=== PATIENT | female | born 1970 | race Caucasian/White ===

== ENCOUNTER → 2017-01-05 07:14 | Day surgery (SDC) | payer SELFPAY ==
[~2017-01-05 07:14] MED LIST: BSS OPTH.SOL* BTL ONE; Bacitracin OINTMENT* 1 TUBE ONE; Buffered Lidocaine 1% SYRIN* 3 ML/SYR SYRINGE INTRADERM ONE; Clindamycin 900 MG IVPREMIX(* 900 MG/50 ML SDV IV ONE; Dexamethasone IV* 4 MG/ML 1 ML (4 MG) ONE; Lidocain 1% EPI 1:100,000 * 30 ML MDV ONE; Lidocaine 1% INJ* 10 MG/ML 30 ML SDV ONE; Lidocaine 1.5% EPI 1:200,000* 30 ML SDV ONE; Lidocaine 2% PF* 5 ML VIAL ONE; Ondansetron INJ* 2 MG/ML VIAL ONE; Propofol* 10 MG/ML 20 ML BTL IV PUSH ONE; Sodium Citrate/Citric Acid* 15 ML UDC ONE; Sodium Citrate/Citric Acid* 15 ML UDC PO ONE; fentaNYL* 50 MCG/ML 2 ML VIAL (100 MCG VIAL) ONE
[2017-01-05 11:59] VITALS: BP 119/73
== END | disposition home or self-care (01) ==
LOC: OREAST 07:14
PROVIDERS: ATTEND Plastic Surgery
DX: Z41.1 Encounter for cosmetic surgery (principal); Z87.891 Personal history of nicotine dependence
CPT/HCPCS: A9270-GY; J1100; J2001; J2405; J2704; J3010

== ENCOUNTER 2017-06-23 07:13 | Day surgery (SDC) | payer OTHER ==
[~2017-06-23 07:13] MED LIST changes: -BSS OPTH.SOL* BTL ONE; -Bacitracin OINTMENT* 1 TUBE ONE; +Buffered Lidocaine 0.9% SYRIN* 5 ML/SYR SYRINGE INTRADERM ONE; -Buffered Lidocaine 1% SYRIN* 3 ML/SYR SYRINGE INTRADERM ONE; -Clindamycin 900 MG IVPREMIX(* 900 MG/50 ML SDV IV ONE; -Dexamethasone IV* 4 MG/ML 1 ML (4 MG) ONE; -Lidocain 1% EPI 1:100,000 * 30 ML MDV ONE; -Lidocaine 1% INJ* 10 MG/ML 30 ML SDV ONE; -Lidocaine 1.5% EPI 1:200,000* 30 ML SDV ONE; -Lidocaine 2% PF* 5 ML VIAL ONE; -Ondansetron INJ* 2 MG/ML VIAL ONE; -Propofol* 10 MG/ML 20 ML BTL IV PUSH ONE; -Sodium Citrate/Citric Acid* 15 ML UDC ONE; -Sodium Citrate/Citric Acid* 15 ML UDC PO ONE; -fentaNYL* 50 MCG/ML 2 ML VIAL (100 MCG VIAL) ONE
[2017-06-23] MEDS ORDERED: Buffered Lidocaine 0.9% SYRIN* 5 ML/SYR SYRINGE ONE (07:20)
[2017-06-23] MEDS ORDERED: Midazolam* 1 MG/ML 5 ML VIAL (5 MG) ONE (08:31)
[2017-06-23] MEDS ORDERED: fentaNYL* 50 MCG/ML 2 ML VIAL (100 MCG VIAL) ONE (08:31)
[2017-06-23] MEDS ORDERED: fentaNYL* 50 MCG/ML 2 ML VIAL (100 MCG VIAL) IV PRN (09:06)
[2017-06-23] MEDS ORDERED: Ketorolac INJ* 30 MG/ML 1 ML VIAL IV PRN (09:06)
[2017-06-23] MEDS ORDERED: oxyCODONE/Acetamin 5/325 MG* TAB PO PRN (09:06)
[2017-06-23] MEDS ORDERED: Silver Nitrate/Potassium Nitr* 1 EA STICK ONE (09:11)
[2017-06-23] MEDS ORDERED: diPHENhydraMINE IV* 50 MG/ML 1 ml VIAL (BENADRYL) ONE (10:08)
[2017-06-23 10:44] VITALS: BP 120/73
--- NOTE | 2017-06-23 23:08 | OP ---
OPERATIVE NOTE: DATE OF OPERATION: 06/23/17 DATE OF : 66 SURGEON: Hanh Leach MD SUPERVISOR GENERAL: None PRE-OP DIAGNOSES: 1. Retained intrauterine device, failed attempt at removal in the office. 2. Desires replacement, Mirena intrauterine device. POST-OP DIAGNOSES: 1. Retained intrauterine device, failed attempt at removal in the office. 2. Desires replacement, Mirena intrauterine device. OPERATIVE PROCEDURE: Removal and re-insertion of Mirena IUD device. ESTIMATED BLOOD LOSS: Minimal. FLUIDS: Crystalloid. FINDINGS: Normal appearing Mirena IUD. INDICATIONS: The patient had a Mirena IUD device that has been in for five years and was due for re moval and replacement. She underwent an attempt at removal in the office which was unsuccessful. T he patient was offered a repeat attempt in the office under ultrasound guidance, but opted for remov al in the OR. DESCRIPTION OF PROCEDURE: After informed consent was signed, the patient was taken to the operating room where she was given spinal anesthesia that was found to be adequate. She was prepped and drap ed in the dorsal lithotomy position in the [facility]. SCDs were on and running. Two speculums were placed into the vagina to reveal the cervix. The anterior lip of the cervix was grasped with a single-tooth tenaculum. A forceps device was used and was able to grasp IUD strings and easily re move the Mirena IUD. The uterus was then sounded to 9 cm. It was necessary to dilate slightly to g et through the internal os. The new Mirena IUD device was then assembled, set at 9 cm, inserted int o the uterine cavity without complications. The tenaculum was removed from the cervix with good hemo stasis with silver nitrate. The patient tolerated the procedure well. [id number]/[facility] #: [id number]
== END 2017-06-23 10:45 | disposition home or self-care (01) ==
LOC: OR 07:13
PROVIDERS: ATTEND Obstetrics & Gynecology
DX: Z30.433 Encounter for removal and reinsertion of intrauterine contraceptive device (principal); Z87.891 Personal history of nicotine dependence
CPT/HCPCS: 81025; A9270-GY; J1200; J2250; J3010; J7300